=== PATIENT | male | born 1960 | race Caucasian/White ===

== ENCOUNTER 2016-05-24 23:15 | Observation (INO) | payer OTHER, BC ==
[~2016-05-24] VITALS: Ht 172.7 cm; Wt 77.0 kg
[~2016-05-24 23:15] MED LIST: TRAMADOL HCL50 MG PO
[2016-05-24 23:56] LABS: HEMATOCRIT 53.3 % (38.0-50.0); MCH 30.9 PG (29.0-34.0); MCV 91.1 FL (86-99); MEAN PLAT.VOLUME 9.2 uM^3 (9.0-12.4); PLATELET COUNT 233 K/uL (156-360); RBC DIS.WIDTH-CV 14.3 % (11.8-14.6); RBC DIS.WIDTH-SD 46.6 % (39-53); RED BLOOD COUNT 5.85 M/uL (4.00-5.50); WHITE BLOOD COUNT 11.5 K/uL (4.1-10.2)
[2016-05-25 00:04] LABS: CHLORIDE 105 mEq/L (99-109); POTASSIUM 4.1 mEq/L (3.7-5.4); SODIUM 140 mEq/L (136-147)
[2016-05-25 00:05] LABS: GLUCOSE 99 mg/dL (70-99)
[2016-05-25 00:07] LABS: ANION GAP 11 MEQ/L (2-14)
[2016-05-25 00:10] LABS: GFR ESTIMATE (CALCULATED) > 59 mL/min/; UREA NITROGEN (BUN) 12 mg/dL (9-23)
[2016-05-25 00:28] LABS: INTER. NORMALIZED RATIO 1.1; PROTHROMBIN TIME 10.8 (9.2-11.2); PTT 28.5 (25-32); TOTAL BILIRUBIN 0.8 mg/dL (0.0-1.0)
[2016-05-25 00:29] LABS: ALKALINE PHOSPHATASE 97 IU/L (3-129)
[2016-05-25 00:32] LABS: DIRECT BILIRUBIN 0.3 mg/dL (0.0-0.3)
[2016-05-25 00:33] LABS: LIPASE 27 U/L (1.0-51.0)
[2016-05-25] MEDS ORDERED: METRONIDAZOLE59 ML TP (01:02)
[2016-05-25] MEDS ORDERED: MINOCYCLINE HC100 MG PO (01:02)
[2016-05-25] MEDS ORDERED: KETOCONAZOLE120 ML TP (01:02)
[2016-05-25] MEDS ORDERED: ALEVE220 MG PO (01:03)
[2016-05-25 02:43] LABS: ADD MIUA? NO; BILIRUBIN NEGATIVE; BLOOD NEGATIVE; COLOR YELLOW ((YELLOW)); GLUCOSE (STRIP) NEGATIVE; KETONES 20; LEUKOCYTES NEGATIVE; NITRITE NEGATIVE; PROTEIN (STRIP) NEGATIVE; UCUL ADDED? NO; UROBILINOGEN 0.2 MG/DL (0.2-1.0)
[2016-05-25 02:54] LABS: SPECIFIC GRAVITY 1.083 (1.000-1.030)
[2016-05-25 02:59] VITALS: BP 143/89
[2016-05-25 05:38] VITALS: BP 137/81
[2016-05-25 07:20] LABS: EOSINOPHIL (%) 0.9 % (0-5); EOSINOPHIL COUNT 0.1 K/uL (0-0.3); HEMATOCRIT 47.7 % (38.0-50.0); IMMATURE GRANULOCYTE (%) 0.2 % (0.0-0.7); LYMPHOCYTE COUNT 1.1 K/uL (1.0-2.8); MCH 32.7 PG (29.0-34.0); MCHC 34.8 G/DL (30.0-36.0); MCV 94.1 FL (86-99); MEAN PLAT.VOLUME 10.2 uM^3 (9.0-12.4); MONOCYTE (%) 8.7 % (3-12); MONOCYTE COUNT 0.9 K/uL (0-0.8); NEUTROPHIL (%) 79.1 % (45-76); PLATELET COUNT 195 K/uL (156-360); RBC DIS.WIDTH-CV 14.1 % (11.8-14.6); RBC DIS.WIDTH-SD 48.2 % (39-53); RED BLOOD COUNT 5.07 M/uL (4.00-5.50); WHITE BLOOD COUNT 10.1 K/uL (4.1-10.2)
[2016-05-25 07:21] VITALS: BP 146/87
[2016-05-25] MEDS ORDERED: FLAGYL500 MG PO (10:22)
[2016-05-25] MEDS ORDERED: CIPRO500 MG PO (10:22)
== END 2016-05-25 11:01 | disposition home or self-care (01) ==
LOC: EME 23:15 → EDOF 05-25 01:45 → 5WEST 05-25 02:39
PROVIDERS: Emergency Medicine; Family Medicine
DX: K57.33 Diverticulitis of large intestine without perforation or abscess with bleeding (principal); E86.0 Dehydration; D72.829 Elevated white blood cell count, unspecified; L30.9 Dermatitis, unspecified; G89.29 Other chronic pain; F17.200 Nicotine dependence, unspecified, uncomplicated
CPT/HCPCS: 74177; 80048; 80076; 81003; 83690; 85025; 85027; 85610; 85730; 86850; 86900; 86901; 99281; 99285; G0378; J0744; J2270; J2405; J7030; S0028; S0030

== ENCOUNTER 2017-02-22 21:51 | Inpatient (IN) | payer OTHER, BC ==
[~2017-02-22] VITALS: Ht 165.1 cm; Wt 76.6 kg
[~2017-02-22 21:51] MED LIST changes: +ALEVE220 MG PO; +CIPRO500 MG PO; +FLAGYL500 MG PO; +KETOCONAZOLE120 ML TP; +METRONIDAZOLE59 ML TP; +MINOCYCLINE HC100 MG PO
[2017-02-23 09:23] VITALS: BP 123/74
[2017-02-23 13:01] LABS: MCH 31.2 PG (29.0-34.0); MCHC 32.4 G/DL (30.0-36.0); MCV 96.2 FL (86-99); MEAN PLAT.VOLUME 9.5 uM^3 (9.0-12.4); PLATELET COUNT 200 K/uL (156-360); RBC DIS.WIDTH-CV 13.4 % (11.8-14.6); RBC DIS.WIDTH-SD 48.2 % (39-53); RED BLOOD COUNT 4.78 M/uL (4.00-5.50); WHITE BLOOD COUNT 6.6 K/uL (4.1-10.2)
[2017-02-23 13:57] VITALS: BP 136/75
[2017-02-23 15:47] VITALS: BP 128/71
[2017-02-23 20:36] VITALS: BP 139/90
[2017-02-23 23:46] VITALS: BP 163/85
[2017-02-24 04:09] VITALS: BP 140/88
[2017-02-24 07:04] LABS: HEMATOCRIT 42.9 % (38.0-50.0); MCV 92.5 FL (86-99)
[2017-02-24 07:28] LABS: ANION GAP 10 MEQ/L (2-14); CHLORIDE 98 MEQ/L (99-109); GFR ESTIMATE (CALCULATED) > 59 mL/min/; GLUCOSE 167 mg/dL (70-99); POTASSIUM 4.1 MEQ/L (3.7-5.4); SAMPLE HEMOLYSIS CHECK 1; SAMPLE ICTERIC CHECK 0; SAMPLE LIPEMIA CHECK 0; SODIUM 130 MEQ/L (136-147); UREA NITROGEN (BUN) 8 mg/dL (9-23)
[2017-02-24 08:00] VITALS: BP 136/81
[2017-02-24 12:23] VITALS: BP 125/78
[2017-02-24 16:23] VITALS: BP 128/73
[2017-02-24 20:36] VITALS: BP 130/72
[2017-02-25 00:23] VITALS: BP 142/65
[2017-02-25 04:19] VITALS: BP 127/69
[2017-02-25 05:58] LABS: HEMATOCRIT 38.9 % (38.0-50.0); MCV 94.6 FL (86-99)
[2017-02-25] MEDS ORDERED: LOVENOX40 MG/0.4 SC (08:22)
[2017-02-25] MEDS ORDERED: ENDOCET 5-3251 EACH PO (08:22)
[2017-02-25] MEDS ORDERED: CELECOXIB200 MG PO (08:22)
[2017-02-25 08:39] VITALS: BP 132/70
[2017-02-25 12:00] VITALS: BP 130/74
== END 2017-02-25 16:11 | DRG 470 ==
LOC: ENRESERV 21:51 → 2SOUTH 02-23 08:52 → 3WEST 02-23 13:36 → 2SOUTH 02-23 14:30 → 3WEST 02-25 16:11
PROVIDERS: Orthopaedic Surgery
PROC: 0SRD0J9 Replacement of Left Knee Joint with Synthetic Substitute, Cemented, Open Approach (ICD-10-PCS; principal; 2017-02-23)
DX: M17.12 Unilateral primary osteoarthritis, left knee (principal); I10 Essential (primary) hypertension; R73.03 Prediabetes; G89.29 Other chronic pain; M54.5 Low back pain; F17.290 Nicotine dependence, other tobacco product, uncomplicated; E66.3 Overweight; Z96.612 Presence of left artificial shoulder joint; Z68.27 Body mass index [BMI] 27.0-27.9, adult
CPT/HCPCS: 73560; 80048; 85014; 85018; 85027; C1713; J0131; J0690; J1170; J1650; J2175; J2250; J2405; J3010; J7050